=== PATIENT | male | born 1985 | race African-American/Black ===

== ENCOUNTER → 2021-10-04 | Outpatient (CLI) | payer OTHER ==
--- NOTE | 2021-10-04 16:27 | XR ---
Left foot and left ankle history: S86.002A UNSPECIFIED INJURY OF LEFT ACHILLES TENDO 3 views of the left foot, 3 views the left ankle Bone mineralization, joint spaces and alignment are maintained. Questionable thickening along the Ach illes tendon distribution. IMPRESSION: No fracture or dislocation. Ankle MRI may be of benefit to assess for Achilles tendon inj ury, correlate
== END | disposition home or self-care (01) ==
LOC: RADXRMAIN 15:47
PROVIDERS: ATTEND Emergency Medicine
DX: S86.002A Unspecified injury of left Achilles tendon, initial encounter (principal)